=== PATIENT | male | born 1975 ===

== ENCOUNTER 2021-12-04 08:08 | Emergency (ER) | payer OTHER ==
[~2021-12-04] VITALS: Ht 172.7 cm; Wt 68.9 kg
[2021-12-04] MEDS ORDERED: TRAZODONE HCL100 MG PO (08:53)
[2021-12-04] MEDS ORDERED: OTEZLA30 MG PO (08:54)
[2021-12-04] MEDS ORDERED: PANTOPRAZOLE SO40 MG PO (08:54)
[2021-12-04] MEDS ORDERED: ATORVASTATIN CA20 MG PO (08:54)
[2021-12-04] MEDS ORDERED: AZELASTINE137 MCG/0. NASAL (08:55)
== END 2021-12-04 11:28 | disposition home or self-care (01) ==
LOC: ER 08:08
DX: S01.122A Laceration with foreign body of left eyelid and periocular area, initial encounter (principal); W18.30XA Fall on same level, unspecified, initial encounter; Y93.9 Activity, unspecified; Y92.59 Other trade areas as the place of occurrence of the external cause; F32.A Depression, unspecified